=== PATIENT | female | born 2000 | race Two or more races ===

== ENCOUNTER 2021-10-12 13:10 | Emergency (ER) | payer OTHER ==
[2021-10-12 13:47] VITALS: BP 109/65
[2021-10-12] MEDS ORDERED: IBUP800T27 PO (15:25)
== END 2021-10-12 15:17 | disposition home or self-care (01) ==
LOC: ER 13:10
DX: S00.03XA Contusion of scalp, initial encounter (principal); Z79.1 Long term (current) use of non-steroidal anti-inflammatories (NSAID); W22.8XXA Striking against or struck by other objects, initial encounter; Y93.89 Activity, other specified; Y92.89 Other specified places as the place of occurrence of the external cause; Y99.8 Other external cause status
CPT/HCPCS: 70450